=== PATIENT | female | born 1990 | race Caucasian/White ===

== ENCOUNTER 2017-02-19 22:24 | Inpatient (IN) ==
[2017-02-19] MEDS: LACTATED RINGERS 1,000 ML IV SCH (23:51)
[2017-02-20] MEDS ORDERED: LACTATED RINGERS 500 ML IV PRN (00:04)
[2017-02-20] MEDS ORDERED: MEPERIDINE 50 MG/1 ML VIAL IV PRN (00:04)
[2017-02-20] MEDS ORDERED: ONDANSETRON 4 MG/2 ML VIAL IV PRN ×2 (00:04→05:58)
[2017-02-20] MEDS ORDERED: BUTORPHANOL 2 MG/ML VIAL IV PRN (00:04)
[2017-02-20 00:18] LABS: Basophils % 0.2 % (0.0-0.8); Eosinophils % 0.1 % (0.00-10.9); Hematocrit 28.5 VOL% (35.7-47.0); Immature Granulocytes % 0.8 %; Immature Granulocytes Absolute 0.07 #; Lymphocytes # 1.4 10*3/uL (1.4-4.0); Lymphocytes % 15.5 % (21.3-54.2); Mean Corpuscular HGB Conc 31.6 GM/DL (32-36); Mean Corpuscular Hemoglobin 26 PG (27-34); Mean Corpuscular Volume 82.8 FL (87-102); Mean Platelet Volume 11.8 FL (9.6-12.0); Monocytes # 0.6 10*3/uL (0.11-0.8); Monocytes % 6.1 % (1.7-12.7); Neutrophils # 7.2 10*3/uL (1.4-7.4); Neutrophils % 77.3 % (38.7-73.9); Platelet Count 185 T/CUMM (130-400); Red Blood Count 3.44 MC/CUMM (3.8-5.5); Red Cell Distribution Width 12.8 % (9.3-17.3); White Blood Count 9.3 T/CUMM (4-12)
[2017-02-20] MEDS ORDERED: PROMETHAZINE 25 MG/1 ML VIAL IM ONE (03:16)
[2017-02-20] MEDS ORDERED: diphenhydrAMINE 50 MG/1 ML VIAL IV PRN ×2 (03:16)
[2017-02-20] MEDS ORDERED: ePHEDrine 50 MG/ML AMP IV PRN (03:16)
[2017-02-20] MEDS ORDERED: hydrOXYzine HCL 25 MG/1 ML VIAL IM PRN (03:16)
[2017-02-20] MEDS ORDERED: ONDANSETRON 4 MG/2 ML VIAL IV ONE (03:16)
[2017-02-20] MEDS ORDERED: CITRIC ACID/SODIUM CITRATE 30 ML UDCUP PO ONE (03:18)
[2017-02-20] MEDS ORDERED: FAMOTIDINE 20 MG/2 ML VIAL IV ONE (03:18)
[2017-02-20] MEDS ORDERED: fentaNYL 2 MCG/ROPIV 0.2% EPID 150 ML EPIDURAL SCH (03:18)
[2017-02-20] MEDS: LACTATED RINGERS 1,000 ML IV SCH ×2 (03:33→04:47)
[2017-02-20] MEDS ORDERED: METHYLERGONOVINE 0.2 MG/1 ML AMP ONE (04:55)
[2017-02-20] MEDS ORDERED: miSOPROStol 200 MCG TABLET ONE (04:55)
--- NOTE | 2017-02-20 05:16 | OB/GYN History & Physical ---
History of Present Illness Chief complaint: 40+ weeks admitted for elective induction History of present illness: Ms. Bethea is a 26 year old female At 40+2 weeks estimated gestational age admitted for elective induction. Ultrasound estimated weight is 8 pounds medical clinical pelvimetry. She is constantly meant for Cytotec induction. Membranes are intact and MONTSERRAT is normal. Presentation is confirmed vertex. Risks benefits alternatives explained to patient in detail and informed consent obtained for the above procedure Home Medications Medication Instructions Recorded Confirmed Type Amitriptyline [Elavil] 50 mg PO DAILY 02/19/17 02/19/17 History Pnv No.95/Ferrous Fum/Folic AC 1 mg PO DAILY 02/19/17 02/19/17 History [ Tablet] Allergies Allergy/AdvReac Type Severity Reaction Status Date / Time No Known Allergies Allergy Verified 02/19/17 23:03 12 point system: reviewed and no additional remarkable complaints except as stated Medical,Surgical,& Family Hx - Medical History Psychological: No history of: Anxiety Disorders, ADHD, Behavior Problems, Bipolar Disorder, Depression, Previous Suicide Attempt, Psychiatric/Substance Abuse Tx, Schizophrenia, Violent Behavior, Psychiatric Problems Endocrine: No history of: Adrenal Disease, Diabetes Mellitus (IDDM), Diabetes Mellitus ( NIDDM), Thyroid Disorder, Endocrine Cancer, Endocrine Problems Gastrointestinal: History of: Hemorrhoids Musculoskeletal: No history of: Amputation Hematology: No history of: Anemia, Bleeding Problems, Clotting Problems, Sickle Cell Disease, Hematologic Cancer, Blood Disorders Other: No history of: Anesthesia Reactions - Surgical History Thoracic Surgeries: Patient denies;: Organ Transplant, Lobectomy Neurologic Surgeries: Patient denies: Neurologic Surgery HEENT Surgeries: Patient denies: Eye Surgery, Thyroid Surgery, Tonsilectomy & Adenoidectomy Reproductive Surgeries: Patient denies;: Genitourinary Surgery, Gynecologic Surgery - Family History Family History: Reports;: Family Cancer (MAT G DAD), Family Diabetes (BOTH G DAD ), Family Heart Disease, Family Hypertension (BOTH G DAD), Family Stroke (PAT G DAD) Denies;: Family Anesthesia Reaction, Family Hematology, Family Psychiatric Problems, Additional Family History - Social History Smoking Status: Never smoker Frequency of Alcohol Use: None 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 - Constitutional Vitals: Vital Signs Temp Pulse Resp BP Pulse Ox 02/20/17 04:00 97.8 F 86 19 133/67 100 02/20/17 00:04 97.9 F 96 H 18 115/71 02/19/17 22:39 98.0 F 106 H 19 111/73 98 General appearance: normal weight, no acute distress - Head Head exam: Present: normal inspection, normocephalic, atraumatic - Respiratory Respiratory exam: Present: clear to auscultation bilaterally - Breast Breasts: as per HPI Menstruation: as per HPI - Cardiovascular Cardiovascular exam: Present: regular rate and rhythm - GI/Abdominal GI/Abdominal exam: Present: normal bowel sounds - Extremities Exam Extremities exam: Present: normal inspection, normal capillary refill - Back Exam Back exam: Present: normal inspection - Neurological Exam Neurological exam: Present: alert, oriented X3 - Psychiatric Psychiatric exam: Present: normal affect - Skin Skin exam: Present: normal color, warm Assessment and Plan (1) Postmaturity , 40-42 weeks gestation Status: Acute Current Visit: Yes (2) Elective induction of labor planned Status: Acute Current Visit: Yes Results - Labs CBC & BMP: 02/20/17 00:13
[2017-02-20] MEDS ORDERED: OXYTOCIN/LR 20 UNIT/1,000 ML BAG IV ONE ×2 (05:43→05:58)
[2017-02-20] MEDS ORDERED: oxyCODONE/ACETAMINOPHEN 5-325 MG TABLET PO PRN ×2 (05:58)
[2017-02-20] MEDS ORDERED: RHO(D) IMMUNE GLOBULIN 300 MCG SYRINGE IM ONE (05:58)
[2017-02-20] MEDS ORDERED: BISACODYL 10 MG SUPP RECTAL PRN (05:58)
[2017-02-20] MEDS ORDERED: MEASLES/MUMPS/RUBELLA VACCINE 0.5 ML VIAL SUBCUT ONE (05:58)
[2017-02-20] MEDS ORDERED: WITCH HAZEL PADS 100/JAR TOP PRN (05:58)
[2017-02-20] MEDS ORDERED: DIPH/TET/ACEL PERT BOOSTER VACCINE 0.5 ML VIAL IM ONE (05:58)
[2017-02-20] MEDS ORDERED: HYDROCORTISONE 2.5% RECTAL CREAM 30 GM TUBE TOP PRN (05:58)
[2017-02-20] MEDS ORDERED: BENZOCAINE 20%/MENTHOL 0.5% SPRAY 56 GM CAN TOP PRN (05:58)
[2017-02-20] MEDS ORDERED: ACETAMINOPHEN 325 MG TABLET PO PRN (05:58)
[2017-02-20] MEDS ORDERED: LANOLIN 50% CREAM 0.3 OZ TUBE TOP PRN (05:58)
--- NOTE | 2017-02-20 05:58 | OB/GYN Progress Note ---
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 Munguia dictating vaginal delivery And in LDR environment under sterile conditions, the patient progressed to completely dilated. She was allowed to push and under [epidural] anesthesia had a normal spontaneous vaginal delivery of a live born female infant unweighed Apgars pending over a intact perineum. The 's nose and oropharynx were bulb and DeLee suctioned, and the infant had spontaneous cry after delivery. The cord was doubly clamped and cut and the was handed over to the pediatric team for care. Cord blood was obtained the placenta delivered spontaneously intact and IV Pitocin was done. There were no cervical tears. There were no periurethral tears. Estimated blood loss was 250 mL. There were no complications. The bladder was emptied using a catheter prior to delivery. All sponge needle and instrument counts were correct -3 at the end of the delivery. 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
[2017-02-20] MEDS ORDERED: ACETAMINOPHEN 500 MG TABLET PO ONE (06:49)
[2017-02-20] MEDS: DOCUSATE SODIUM 100 MG CAPSULE PO SCH ×2 (12:36→20:20)
[2017-02-20] MEDS ORDERED: ACETAMINOPHEN 500 MG TABLET ONE (13:03)
[2017-02-20] MEDS: ACETAMINOPHEN 500 MG TABLET PO SCH ×3 (13:05→15:32)
[2017-02-20] MEDS ORDERED: ACETAMINOPHEN 500 MG TABLET PO PRN (14:14)
--- NOTE | 2017-02-20 17:11 | Anesthesia Post-Op ---
Anesthesia Post OP - Post Ansesthetic Evaluation Patient seen in post op: Yes Resp: within normal limits CV: within normal limits Mental: within normal limits Temp: within normal limits [id number]: within normal limits Nausea and Vomiting: within normal limits Pain: within normal limits
[2017-02-20] MEDS: IBUPROFEN 800 MG TABLET PO PRN (20:20)
[2017-02-21 05:29] LABS: Basophils % 0.3 % (0.0-0.8); Eosinophils # 0.1 10*3/uL (0.0-0.87); Eosinophils % 0.6 % (0.00-10.9); Hematocrit 27.1 VOL% (35.7-47.0); Hemoglobin 8.5 GM/DL (12.0-16.0); Immature Granulocytes % 1.2 %; Immature Granulocytes Absolute 0.13 #; Lymphocytes % 18.1 % (21.3-54.2); Mean Corpuscular HGB Conc 31.4 GM/DL (32-36); Mean Corpuscular Hemoglobin 26 PG (27-34); Mean Corpuscular Volume 82.9 FL (87-102); Monocytes # 0.9 10*3/uL (0.11-0.8); Neutrophils % 71.8 % (38.7-73.9); Platelet Count 189 T/CUMM (130-400); Red Blood Count 3.27 MC/CUMM (3.8-5.5); Red Cell Distribution Width 12.8 % (9.3-17.3); White Blood Count 11.1 T/CUMM (4-12)
--- NOTE | 2017-02-21 05:46 | OB/GYN Progress Note ---
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
[2017-02-21] MEDS: IBUPROFEN 800 MG TABLET PO PRN ×2 (05:56→18:02)
[2017-02-21] MEDS: DOCUSATE SODIUM 100 MG CAPSULE PO SCH ×2 (09:22→22:00)
[2017-02-21] MEDS: MULTIVITAMIN (PRENATAL) TABLET PO SCH (09:23)
[2017-02-21] MEDS: AMITRIPTYLINE 50 MG TABLET PO SCH (09:23)
--- NOTE | 2017-02-22 06:53 | Discharge Summary ---
Hospital Course - Hospital Course Hospital Course: the patient did well. She had quick return of bowel and bladder function. She remained afebrile and normotensive throughout her hospitalization. She was counseled discharged on day #2 on a regular diet. She is given prescription for Palatine 5 for pain. Diagnosis - Discharge Diagnosis (1) Postmaturity , 40-42 weeks gestation Status: Acute (2) Elective induction of labor planned Status: Acute Specialty Discharge - Follow Up or Referrals Follow up with: Wilbert Munguia MD [Primary Care Provider] - 03/07/17 11:00 am Discharge Plan - Discharge Data Disposition: Disch To Home/Self Care Condition at Discharge: Stable Discharge Diet: regular diet Activity: resume usual activities as tolerated, other (Pelvic rest) Hygiene: may shower Weight Bearing at Discharge: full weight bearing Driving: no restrictions Contact your physician if you experience:: fever over 101, Difficulty voiding, Redness or swelling, Nausea/Vomiting, Shortness of breath, Bleeding, pain uncontrolled by pain medications - Discharge Medications New HYDROcodone/ACETAMIN 5-325 [Palatine 5-325] 1 tablet PO Q4H PRN #10 tablet PRN Reason: Abdominal Pain Continue Pnv No.95/Ferrous Fum/Folic AC [ Tablet] 1 mg PO DAILY Discontinued Amitriptyline [Elavil] 50 mg PO DAILY - Follow Up or Referral Follow Up: Wilbert Munguia MD [Primary Care Provider] - 1 Week - Forms/Instructions Instructions: Vaginal Delivery (DC), Bleeding (DC) Exam - Constitutional Vitals: Period Temp Pulse Resp BP Sys/Gan Pulse Ox Last 24 Hr 97.2 F-98.0 F 66-81 18-20 98-150/55-93 98-99 DS: Provider Date of admission: 02/20/17 00:04 Primary care physician: Edmund Garcia Attending physician on admission: Edmund Garcia Consults: 02/20/17 00:04 Consult to Anesthesiology [CONS] Routine Consulting Provider: Reason for Anesthesiology: Epidural Consult Comment: Epidural for pain managment 02/20/17 05:59 Consult to Inside Barrel Lathe Operator [CONS] Routine Consult Inside Barrel Lathe Operator: Breast Feeding Discharging clinician: Edmund Garcia Expected date of discharge: 02/22/17
[2017-02-22 07:26] VITALS: BP 106/67
[2017-02-22] MEDS: DOCUSATE SODIUM 100 MG CAPSULE PO SCH (09:50)
[2017-02-22] MEDS: MULTIVITAMIN (PRENATAL) TABLET PO SCH (09:50)
[2017-02-22] MEDS: AMITRIPTYLINE 50 MG TABLET PO SCH (09:50)
== END 2017-02-22 12:05 | disposition home or self-care (01) | DRG 775 ==
LOC: N.LDOUT 22:24 → N.LD 22:33 → N.OB 02-20 10:17
PROVIDERS: ADMIT Specialist; ATTEND Specialist